=== PATIENT | male | born 1970 | race Hispanic/Latino ===

== ENCOUNTER 2017-12-20 11:18 | Emergency (ER) | payer SELFPAY ==
[2017-12-20] MEDS ORDERED: MOTRIN400 MG PO (13:24)
[2017-12-20] MEDS ORDERED: CYCLOBENZAPR5 MG PO (13:24)
[2017-12-20] MEDS ORDERED: NO HOME MEDS (13:37)
[2017-12-20 13:45] VITALS: BP 132/81
== END 2017-12-20 13:45 | disposition home or self-care (01) | DRG 563 ==
LOC: ED 11:18
DX: S29.012A Strain of muscle and tendon of back wall of thorax, initial encounter (principal); S39.012A Strain of muscle, fascia and tendon of lower back, initial encounter; X58.XXXA Exposure to other specified factors, initial encounter